=== PATIENT | male | born 1970 | race African-American/Black ===

== ENCOUNTER 2021-09-25 15:53 | Observation (INO) | payer SELFPAY ==
[~2021-09-25] VITALS: Ht 180.3 cm; Wt 118.0 kg
--- NOTE | 2021-09-25 16:05 | ED.ADGEN ---
Past Medical History Past Medical History: Hypertension General Adult HPI: HPI: Patient is a 50-year-old male who arrives who arrives via EMS after experiencing a syncopal episode while working. Patient reports he was moving a box when he was overcome with chest pain. Patient states in addition to having chest pain h e felt lightheaded and subsequently passed out which was witnessed by bystanders. Patient reports this is happened on multiple occasions however he is never sought medical attention. Patient denies any history of previous illness. He further denies any nausea, diaphoresis or shortness of air. Ad ditionally denies any head trauma from passing out or neurological changes from his baseline. He is awake, alert and nontoxic-appearing. Review of Systems: Review of Systems: Constitutional: Denies fever or chills. [] Eyes: Denies change in visual acuity. [] HENT: Denies nasal congestion or sore throat. [] Respiratory: Denies cough or shortness of breath. [] Cardiovascular: Reports chest and syncope. Denies edema. [] GI: Denies abdominal pain, nausea, vomiting, bloody stools or diarrhea. [] : Denies dysuria. [] Musculoskeletal: Denies back pain or joint pain. [] Integument: Denies rash. [] Neurologic: Denies headache, focal weakness or sensory changes. [] Endocrine: Denies polyuria or polydipsia. [] Lymphatic: Denies swollen glands. [] Psychiatric: Denies depression or anxiety. [] Current Medications: Current Medications Medications (Trade) Dose Ordered Sig/Paz Start Time Stop Time Status Last Admin Dose Admin Ondansetron HCl (Zofran) 4 mg PRN Q8HRS PRN 09/25/21 17:45 09/26/21 17:44 Sodium Chloride 1,000 ml @ 1,000 mls/hr 1X ONCE 09/25/21 17:30 09/25/21 18:29 Allergies: Allergies: Allergies Coded Allergies Type Severity Reaction Last Updated Verified No Known Drug Allergies 09/25/21 No Physical Exam: PE: Constitutional: Well developed, well nourished, no acute distress, non-toxic appearance. [] HENT: Normocephalic, atraumatic, bilateral external ears normal, oropharynx moist, no oral exudates, nose normal. [] Eyes: PERRLA, EOMI, conjunctiva normal, no discharge. [] Neck: Normal range of motion, no tenderness, supple, no stridor. [] Cardiovascular:Heart rate regular rhythm, no murmur [] Lungs & Thorax: Bilateral breath sounds clear to auscultation [] Abdomen: Bowel sounds normal, soft, no tenderness, no masses, no pulsatile masses. [] Skin: Warm, dry, no erythema, no rash. [] Back: No tenderness, no CVA tenderness. [] Extremities: No tenderness, no cyanosis, no clubbing, ROM intact, no edema. [] Neurologic: Alert and oriented X 3, normal motor function, normal sensory function, no focal deficits noted. [] Psychologic: Affect normal, judgement normal, mood normal. [] Current Patient Data: Labs: Laboratory Tests Test 09/25/21 16:40 White Blood Count 7.8 x10^3/uL (4.0-11.0) Red Blood Count 4.51 x10^6/uL (4.30-5.70) Hemoglobin 13.1 g/dL (13.0-17.5) Hematocrit 39.6 % (39.0-53.0) Mean Corpuscular Volume 88 fL (79-100) Mean Corpuscular Hemoglobin 29 pg (25-35) Mean Corpuscular Hemoglobin Concent 33 g/dL (31-37) Red Cell Distribution Width 14.0 % (11.5-14.5) Platelet Count 277 x10^3/uL (140-400) Neutrophils (%) (Auto) 74 % (31-73) H Lymphocytes (%) (Auto) 18 % (24-48) L Monocytes (%) (Auto) 6 % (0-9) Eosinophils (%) (Auto) 1 % (0-3) Basophils (%) (Auto) 1 % (0-3) Neutrophils # (Auto) 5.8 x10^3/uL (1.8-7.7) Lymphocytes # (Auto) 1.4 x10^3/uL (1.0-4.8) Monocytes # (Auto) 0.4 x10^3/uL (0.0-1.1) Eosinophils # (Auto) 0.1 x10^3/uL (0.0-0.7) Basophils # (Auto) 0.1 x10^3/uL (0.0-0.2) Sodium Level 147 mmol/L (136-145) H Potassium Level 4.0 mmol/L (3.5-5.1) Chloride Level 108 mmol/L (98-107) H Carbon Dioxide Level 27 mmol/L (21-32) Anion Gap 12 (6-14) Blood Urea Nitrogen 13 mg/dL (8-26) Creatinine 1.2 mg/dL (0.7-1.3) Estimated GFR (Cockcroft-Gault) 64.4 BUN/Creatinine Ratio 11 (6-20) Glucose Level 102 mg/dL (70-99) H Calcium Level 9.2 mg/dL (8.5-10.1) Total Bilirubin 0.4 mg/dL (0.2-1.0) Aspartate Amino Transferase (AST) 219 U/L (15-37) H Alanine Aminotransferase (ALT) 232 U/L (16-63) H Alkaline Phosphatase 122 U/L (46-116) H Troponin I High Sensitivity 59 ng/L (4-75) Total Protein 7.3 g/dL (6.4-8.2) Albumin 3.8 g/dL (3.4-5.0) Albumin/Globulin Ratio 1.1 (1.0-1.7) Laboratory Tests 09/25/21 16:40 Laboratory Tests 09/25/21 16:40 Vital Signs: Vital Signs Date Time Temp Pulse Resp B/P (MAP) Pulse Ox O2 Delivery O2 Flow Rate FiO2 09/25/21 16:05 98.2 79 18 134/88 (103) 97 Room Air 98.2 EKG: EKG: EKG was obtained at 1559 hrs. and reveals a normal sinus rhythm with a ventricular rate of 75 bpm. There is left axis deviation present. There are no acute ST/T wave changes to denote ischemia. There is no STEMI present. [] Heart Score: C/O Chest Pain: Yes HEART Score for Chest Pain: HEART Score for Chest Pain Response (Comments) Value History Slighlty/Non-Suspicious 0 ECG Normal 0 Age >45 - < 65 1 Risk Factors 1 or 2 Risk Factors 1 Troponin < Normal Limit 0 Total 2 Risk Factors: Risk Factors: DM, Current or recent (<one month) smoker, HTN, HLP, family history of CAD, obesity. Risk Scores: Score 0 - 3: 2.5% MACE over next 6 weeks - Discharge Home Score 4 - 6: 20.3% MACE over next 6 weeks - Admit for Clinical Observation Score 7 - 10: 72.7% MACE over next 6 weeks - Early Invasive Strategies Radiology/Procedures: Radiology/Procedures: [][facility] [address] [place] [address] IMAGING REPORT Signed PATIENT: ERIBERTO MENDOSA ACCOUNT: [id number] : 1970 LOCATION: ER AGE: 50 SEX: M EXAM STATUS: PRE ER ORD. PHYSICIAN: ALICIA SANDOVAL DO REASON: syncope PROCEDURE: PORTABLE CHEST 1V EXAM: XR CHEST 1V 09/25/2021 4:03 PM CLINICAL INDICATION: Syncope COMPARISON: None TECHNIQUE: AP upright view of the chest FINDINGS: The heart is normal in size. There are calcified left hilar lymph nodes. Lungs are well-expanded and clear. No consolidation, pleural effusion, or pneumothorax. Pulmonary vascularity is normal. The thoracic skeleton is intact. IMPRESSION: No acute cardiopulmonary abnormality. Electronically signed by: Barbara Hartmann MD (09/25/2021 4:13 PM) [id number] DICTATED and SIGNED BY: BARBARA HARTMANN MD DATE: 09/25/21 [id number] 0 Course & Med Decision Making: Course & Med Decision Making Pertinent Labs and Imaging studies reviewed. (See chart for details) [] Dragon Disclaimer: Dragon Disclaimer: This electronic medical record was generated, in whole or in part, using a voice recognition dictation system. Departure Departure Impression: Primary Impression: Syncope and collapse Additional Impressions: Chest pain Transaminitis Disposition: ADMITTED INPATIENT Admitting Physician: ROSALIO Condition: STABLE Problem Qualifiers ALICAI SANDOVAL DO Sep 25, 2021 16:05
--- NOTE | 2021-09-25 16:16 | RAD ---
EXAM: XR CHEST 1V 09/25/2021 4:03 PM CLINICAL INDICATION: Syncope COMPARISON: None TECHNIQUE: AP upright view of the chest FINDINGS: The heart is normal in size. There are calcified left hilar lymph nodes. Lungs are well-ex panded and clear. No consolidation, pleural effusion, or pneumothorax. Pulmonary vascularity is nor mal. The thoracic skeleton is intact. IMPRESSION: No acute cardiopulmonary abnormality. Electronically signed by: Barbara Hartmann MD (09/25/2021 4:13 PM) [id number]
[2021-09-25 16:47] LABS: BASO # 0.1 x10^3/uL (0.0-0.2); BASO % 1 % (0-3); EOS # 0.1 x10^3/uL (0.0-0.7); EOS % 1 % (0-3); HEMATOCRIT 39.6 % (39.0-53.0); HEMOGLOBIN 13.1 g/dL (13.0-17.5); LYMPH # 1.4 x10^3/uL (1.0-4.8); LYMPH % 18 % (24-48); MEAN CORPUSCULAR HEMOGLOBIN 29 pg (25-35); MEAN CORPUSCULAR HGB CONC 33 g/dL (31-37); MEAN CORPUSCULAR VOLUME 88 fL (79-100); MONO # 0.4 x10^3/uL (0.0-1.1); MONO % 6 % (0-9); NEUT # 5.8 x10^3/uL (1.8-7.7); NEUT % 74 % (31-73); PLATELET COUNT 277 x10^3/uL (140-400); RED BLOOD COUNT 4.51 x10^6/uL (4.30-5.70); WHITE BLOOD COUNT 7.8 x10^3/uL (4.0-11.0)
[2021-09-25 17:02] LABS: CALCIUM 9.2 mg/dL (8.5-10.1); CREATININE 1.2 mg/dL (0.7-1.3); GFR 64.4
[2021-09-25 17:08] LABS: ALBUMIN 3.8 g/dL (3.4-5.0); ALBUMIN/GLOBULIN RATIO 1.1 (1.0-1.7); TOTAL BILIRUBIN 0.4 mg/dL (0.2-1.0); TOTAL PROTEIN 7.3 g/dL (6.4-8.2)
[2021-09-25] MEDS ORDERED: IV NORMAL SALINE 1000ML BAG 1,000 ML IV ONE (17:30)
[2021-09-25] MEDS ORDERED: ONDANSETRON PF 4 MG/2 ML VIAL. IVP PRN (17:45)
--- NOTE | 2021-09-25 18:02 | EKG ---
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
[2021-09-25 21:10] VITALS: BP 185/94
--- NOTE | 2021-09-25 21:16 | PDOC1 ---
History and Physical Date of Admission Date of Admission DATE: 09/25/21 TIME: 21:15 History of Present Illness History of Present Illness Jose is a 50-year-old male admit for having severe chest pain and a syncopal episode while working. Patient reports he was moving a box when he was overcome with chest pain. He has had syncope a couple times before, never sought care, has happened when standing then walking Today, when he had chest pain he felt lightheaded and subsequently passed out which was witnessed by bystanders. His chest pain is nowimproved, maybe 2 Patient denies any history of previous illness. He further denies any nausea, diaphoresis or shortness of air Past Medical History Cardiovascular: No pertinent hx Pulmonary: No pertinent hx GI: No pertinent hx Heme/Onc: No pertinent hx ENT: No pertinent hx Renal/: No pertinent hx Endocrine: No pertinent hx Past Surgical History Past Surgical History: No pertinent history Family History Family History: No Significant Social History Smoke: No ALCOHOL: rare Drugs: None Current Problem List Problem List Problems Medical Problems: (1) Chest pain Status: Acute (2) Syncope and collapse Status: Acute (3) Transaminitis Status: Acute Current Medications Current Medications Current Medications Sodium Chloride 1,000 ml @ 1,000 mls/hr 1X ONCE IV Last administered on 09/25/21at 18:12; Start 09/25/21 at 17:30; Stop 09/25/21 at 18:29; Status DC Ondansetron HCl (Zofran) 4 mg PRN Q8HRS PRN IVP NAUSEA/VOMITING; Start 09/25/21 at 17:45; Stop 09/26/21 at 17:44 Allergies Allergies: Coded Allergies: No Known Drug Allergies (Unverified , 09/25/21) ROS General: No: Chills, Night Sweats, Fatigue, Malaise, Appetite, Other PSYCHOLOGICAL ROS: No: Anxiety, Behavioral Disorder, Concentration difficultie, Decreased libido, Depression, Disorientation, Hallucinations, Hostility, Irritablity, Memory difficulties, Mood Swings, Obsessive thoughts, Sleep disturbances, Other Eyes: No Blurry vision, No Decreased vision, No Double vision, No Dry eyes, No Excessive tearing, No Eye Pain, No Itchy Eyes, No Loss of vision, No Photophobia, No Scotomata, No Uses contacts, No Uses glasses, No Other HEENT: No: Heacaches, Visual Changes, Hearing change, Nasal congestion, Nasal discharge, Oral lesions, Sinus pain, Sore Throat, Epistaxis, Sneezing, Snoring, Tinnitus, Vertigo, Vocal changes, Other Respiratory: No: Cough, Hemoptysis, Orthopnea, Pleuritic Pain, Shortness of breath, SOB with excertion, Sputum Changes, Stridor, Tachypnea, Wheezing, Other Cardiovascular: yes Chest Pain, yes Other (syncope a couple times); No Palpitations, No Orthopnea, No Paroxysmal Noc. Dyspnea, No Edema, No Lt Headedness Gastrointestinal: No Nausea, No Vomiting, No Abdominal Pain, No Diarrhea, No Constipation, No Melena, No Hematochezia, No Other Genitourinary: No Dysuria, No Frequency, No Incontinence, No Hematuria, No Retention, No Discharge, No Urgency, No Pain, No Flank Pain, No Other, No , No , No , No , No , No , No Musculoskeletal: No Gait Disturbance, No Joint Pain, No Joint Stiffness, No Joint Swelling, No Muscle Pain, No Muscular Weakness, No Pain In:, No Swelling In:, No Other Neurological: No Behavorial Changes, No Bowel/Bladder ControlChng, No Confusion, No Dizziness, No Gait Disturbance, No Headaches, No Impaired Coord/balance, No Memory Loss, No Numbness/Tingling, No Seizures, No Speech Problems, No Tremors, No Visual Changes, No Weakness, No Other Skin: Yes Dry Skin; No Eczema, No Hair Changes, No Lumps, No Mole Changes, No Mottling, No Nail Changes, No Pruritus, No Rash, No Skin Lesion Changes, No Other, No Acne Physical Exam General: Alert, Oriented X3, Cooperative, No acute distress HEENT: Atraumatic, PERRLA, Mucous membr. moist/pink Lungs: Clear to auscultation Heart: S1S2, RRR, no gallops Abdomen: Normal bowel sounds (obese, ) Extremities: No clubbing, No edema, Normal pulses Skin: No rashes Neuro: Normal speech, Normal tone, Sensation intact Psych/Mental Status: Mood NL Vitals Vitals Vital Signs Date Time Temp Pulse Resp B/P (MAP) Pulse Ox O2 Delivery O2 Flow Rate FiO2 09/25/21 19:28 61 131/73 (92) 100 Room Air 09/25/21 16:05 98.2 18 98.2 Labs Labs Laboratory Tests Test 09/25/21 16:40 09/25/21 20:05 White Blood Count 7.8 x10^3/uL (4.0-11.0) Red Blood Count 4.51 x10^6/uL (4.30-5.70) Hemoglobin 13.1 g/dL (13.0-17.5) Hematocrit 39.6 % (39.0-53.0) Mean Corpuscular Volume 88 fL (79-100) Mean Corpuscular Hemoglobin 29 pg (25-35) Mean Corpuscular Hemoglobin Concent 33 g/dL (31-37) Red Cell Distribution Width 14.0 % (11.5-14.5) Platelet Count 277 x10^3/uL (140-400) Neutrophils (%) (Auto) 74 % (31-73) Lymphocytes (%) (Auto) 18 % (24-48) Monocytes (%) (Auto) 6 % (0-9) Eosinophils (%) (Auto) 1 % (0-3) Basophils (%) (Auto) 1 % (0-3) Neutrophils # (Auto) 5.8 x10^3/uL (1.8-7.7) Lymphocytes # (Auto) 1.4 x10^3/uL (1.0-4.8) Monocytes # (Auto) 0.4 x10^3/uL (0.0-1.1) Eosinophils # (Auto) 0.1 x10^3/uL (0.0-0.7) Basophils # (Auto) 0.1 x10^3/uL (0.0-0.2) Sodium Level 147 mmol/L (136-145) Potassium Level 4.0 mmol/L (3.5-5.1) Chloride Level 108 mmol/L (98-107) Carbon Dioxide Level 27 mmol/L (21-32) Anion Gap 12 (6-14) Blood Urea Nitrogen 13 mg/dL (8-26) Creatinine 1.2 mg/dL (0.7-1.3) Estimated GFR (Cockcroft-Gault) 64.4 BUN/Creatinine Ratio 11 (6-20) Glucose Level 102 mg/dL (70-99) Calcium Level 9.2 mg/dL (8.5-10.1) Total Bilirubin 0.4 mg/dL (0.2-1.0) Aspartate Amino Transf (AST/SGOT) 219 U/L (15-37) Alanine Aminotransferase (ALT/SGPT) 232 U/L (16-63) Alkaline Phosphatase 122 U/L (46-116) Troponin I High Sensitivity 59 ng/L (4-75) Total Protein 7.3 g/dL (6.4-8.2) Albumin 3.8 g/dL (3.4-5.0) Albumin/Globulin Ratio 1.1 (1.0-1.7) SARS-CoV-2 Antigen (Rapid) Negative (NEGATIVE) Laboratory Tests Test 09/25/21 16:40 09/25/21 20:05 White Blood Count 7.8 x10^3/uL (4.0-11.0) Red Blood Count 4.51 x10^6/uL (4.30-5.70) Hemoglobin 13.1 g/dL (13.0-17.5) Hematocrit 39.6 % (39.0-53.0) Mean Corpuscular Volume 88 fL (79-100) Mean Corpuscular Hemoglobin 29 pg (25-35) Mean Corpuscular Hemoglobin Concent 33 g/dL (31-37) Red Cell Distribution Width 14.0 % (11.5-14.5) Platelet Count 277 x10^3/uL (140-400) Neutrophils (%) (Auto) 74 % (31-73) Lymphocytes (%) (Auto) 18 % (24-48) Monocytes (%) (Auto) 6 % (0-9) Eosinophils (%) (Auto) 1 % (0-3) Basophils (%) (Auto) 1 % (0-3) Neutrophils # (Auto) 5.8 x10^3/uL (1.8-7.7) Lymphocytes # (Auto) 1.4 x10^3/uL (1.0-4.8) Monocytes # (Auto) 0.4 x10^3/uL (0.0-1.1) Eosinophils # (Auto) 0.1 x10^3/uL (0.0-0.7) Basophils # (Auto) 0.1 x10^3/uL (0.0-0.2) Sodium Level 147 mmol/L (136-145) Potassium Level 4.0 mmol/L (3.5-5.1) Chloride Level 108 mmol/L (98-107) Carbon Dioxide Level 27 mmol/L (21-32) Anion Gap 12 (6-14) Blood Urea Nitrogen 13 mg/dL (8-26) Creatinine 1.2 mg/dL (0.7-1.3) Estimated GFR (Cockcroft-Gault) 64.4 BUN/Creatinine Ratio 11 (6-20) Glucose Level 102 mg/dL (70-99) Calcium Level 9.2 mg/dL (8.5-10.1) Total Bilirubin 0.4 mg/dL (0.2-1.0) Aspartate Amino Transf (AST/SGOT) 219 U/L (15-37) Alanine Aminotransferase (ALT/SGPT) 232 U/L (16-63) Alkaline Phosphatase 122 U/L (46-116) Troponin I High Sensitivity 59 ng/L (4-75) Total Protein 7.3 g/dL (6.4-8.2) Albumin 3.8 g/dL (3.4-5.0) Albumin/Globulin Ratio 1.1 (1.0-1.7) SARS-CoV-2 Antigen (Rapid) Negative (NEGATIVE) VTE Prophylaxis Ordered VTE Prophylaxis Devices: No VTE Pharmacological Prophylaxi: Yes Assessment/Plan Assessment/Plan chest pain with exertion, angina, r/o ACS, consult CV syncope, tele obese, BMI 36 transaminitis, check hep panel, US Justifications for Admission Other Justification SRIRAM MOLINA MD Sep 25, 2021 21:16
[2021-09-25] MEDS ORDERED: ZOLPIDEM 5 MG TABLET. PO ONE (22:30)
[2021-09-25] MEDS ORDERED: ENOXAPARIN 40 MG/0.4 ML SYRINGE. SQ SCH (23:00)
[2021-09-26] VITALS (11 sets, daily range): BP systolic 138–178; BP diastolic 72–101
[2021-09-26 06:39] LABS: BASO % 1 % (0-3); EOS # 0.1 x10^3/uL (0.0-0.7); EOS % 2 % (0-3); HEMATOCRIT 37.1 % (39.0-53.0); HEMOGLOBIN 12.4 g/dL (13.0-17.5); LYMPH # 1.6 x10^3/uL (1.0-4.8); LYMPH % 27 % (24-48); MEAN CORPUSCULAR HEMOGLOBIN 30 pg (25-35); MEAN CORPUSCULAR HGB CONC 34 g/dL (31-37); MEAN CORPUSCULAR VOLUME 88 fL (79-100); MONO # 0.4 x10^3/uL (0.0-1.1); MONO % 7 % (0-9); NEUT # 3.8 x10^3/uL (1.8-7.7); NEUT % 63 % (31-73); PLATELET COUNT 257 x10^3/uL (140-400); RED BLOOD COUNT 4.22 x10^6/uL (4.30-5.70); RED CELL DISTRIBUTION WIDTH 13.8 % (11.5-14.5)
[2021-09-26 06:42] LABS: PROTHROMBIN TIME PATIENT 13.1 SEC (11.7-14.0)
[2021-09-26 07:01] LABS: ALBUMIN 3.4 g/dL (3.4-5.0); ALBUMIN/GLOBULIN RATIO 1.1 (1.0-1.7); CALCIUM 8.7 mg/dL (8.5-10.1); GFR 96.1; POTASSIUM 4.2 mmol/L (3.5-5.1); TOTAL BILIRUBIN 0.5 mg/dL (0.2-1.0); TOTAL PROTEIN 6.5 g/dL (6.4-8.2)
[2021-09-26 07:08] LABS: CHOLESTEROL/HDL RATIO 4.6
--- NOTE | 2021-09-26 08:23 | RAD ---
Exam: Right Upper Quadrant Ultrasound 09/25/2021 6:36 AM Indication: Abdominal pain Technique: Multiple realtime grayscale sonographic images were obtained over the abdomen. Static imag es were submitted for interpretation. Comparisons: None Findings: Pancreas is poorly visualized. Visualized aorta and IVC are unremarkable. Liver is mildly hyperechoic . Mild hepatic steatosis not excluded. No focal hepatic lesions are identified. The liver is top norm al in regards to size measuring 17.7 cm longitudinally. The gallbladder demonstrates no evidence of w all thickening, stones, or sludge. Portal venous flow appears to the normal direction. Right kidney i s normal in appearance measuring 11 cm in length. IMPRESSION: 1. Possible mild hepatic steatosis 2. Otherwise unremarkable sonographic appearance of the right upper quadrant. Electronically signed by: Wilver Mitchell MD (09/26/2021 8:21 AM) [id number]
--- NOTE | 2021-09-26 09:10 | PDOC2 ---
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 Park SOURCE Source: Chart review, Patient HISTORY OF PRESENT ILLNESS HISTORY OF PRESENT ILLNESS This is a 50 yo male who presented secondary to syncopal episode. Patient reports he was at work carrying a heavy box. He bent over the lay the box down. When he stood up, had sudden onset of dizziness, lightheaded. He lead against the truck and was able to open the door. He then subsequently passed out. Fortunately, he landed in the vehicle and did not fall to the ground. EMS was called. Patient then reports experiencing pressure in his left chest. No palpitations, diaphoresis, or nausea/vomiting. He reports chest resolved upon EMS arrival without intervention. Patient reports multiple episode of passing out previously. Denies any injury with this. 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 [place] lightheaded, dizzy while ambulating and subsequently passed o ut. Has been evaluated in the ED once prior for syncopal episode, but was discharge home. Cannot recall suspected etiology of this. PAST MEDICAL HISTORY Cardiovascular: HTN PAST SURGICAL HISTORY Past Surgical History: Hernia Repair, Other (knee surgery ) FAMILY HISTORY Family History: Diabetes, Hypertension SOCIAL HISTORY Smoke: <1 pack per day ALCOHOL: none (h/o heavy use, but quit) Drugs: Marijuana Lives: with Family CURRENT MEDICATIONS CURRENT MEDICATIONS Current Medications Medications (Trade) Dose Ordered Sig/Paz Route PRN Reason Start Time Stop Time Status Last Admin Dose Admin Sodium Chloride 1,000 ml @ 1,000 mls/hr 1X ONCE IV 09/25/21 17:30 09/25/21 18:29 DC 09/25/21 18:12 Zolpidem Tartrate (Ambien) 5 mg 1X ONCE PO 09/25/21 22:30 09/25/21 22:31 DC 09/26/21 00:26 Enoxaparin Sodium (Lovenox 40mg Syringe) 40 mg Q24H SQ 09/25/21 23:00 09/26/21 00:27 ALLERGIES ALLERGIES: Coded Allergies: No Known Drug Allergies (Unverified , 09/25/21) ROS Review of System 14 point ROS conducted with pertinent positives noted above in HPI PHYSICAL EXAM General: Alert, Oriented X3, Cooperative, No acute distress HEENT: Atraumatic Lungs: Clear to auscultation Heart: Regular rate Abdomen: Soft, No tenderness Extremities: No edema, Normal pulses Skin: No significant lesion Neuro: Normal speech, Sensation intact Psych/Mental Status: Mental status NL, Mood NL MUSCULOSKELETAL: Osteoarthritic changes both hands VITALS/I&O VITALS/I&O: Vital Signs Date Time Temp Pulse Resp B/P (MAP) Pulse Ox O2 Delivery O2 Flow Rate FiO2 09/26/21 03:00 50 22 146/75 (98) 99 Room Air 09/25/21 21:10 98.4 98.4 I & O 09/25/21 09/25/21 09/26/21 15:00 23:00 07:00 Intake Total 240 ml Output Total 300 ml Balance -60 ml LABS Lab: Laboratory Tests Test 09/25/21 16:40 09/25/21 20:05 09/26/21 04:35 White Blood Count 7.8 x10^3/uL (4.0-11.0) 6.0 x10^3/uL (4.0-11.0) Red Blood Count 4.51 x10^6/uL (4.30-5.70) 4.22 x10^6/uL (4.30-5.70) L Hemoglobin 13.1 g/dL (13.0-17.5) 12.4 g/dL (13.0-17.5) L Hematocrit 39.6 % (39.0-53.0) 37.1 % (39.0-53.0) L Mean Corpuscular Volume 88 fL (79-100) 88 fL (79-100) Mean Corpuscular Hemoglobin 29 pg (25-35) 30 pg (25-35) Mean Corpuscular Hemoglobin Concent 33 g/dL (31-37) 34 g/dL (31-37) Red Cell Distribution Width 14.0 % (11.5-14.5) 13.8 % (11.5-14.5) Platelet Count 277 x10^3/uL (140-400) 257 x10^3/uL (140-400) Neutrophils (%) (Auto) 74 % (31-73) H 63 % (31-73) Lymphocytes (%) (Auto) 18 % (24-48) L 27 % (24-48) Monocytes (%) (Auto) 6 % (0-9) 7 % (0-9) Eosinophils (%) (Auto) 1 % (0-3) 2 % (0-3) Basophils (%) (Auto) 1 % (0-3) 1 % (0-3) Neutrophils # (Auto) 5.8 x10^3/uL (1.8-7.7) 3.8 x10^3/uL (1.8-7.7) Lymphocytes # (Auto) 1.4 x10^3/uL (1.0-4.8) 1.6 x10^3/uL (1.0-4.8) Monocytes # (Auto) 0.4 x10^3/uL (0.0-1.1) 0.4 x10^3/uL (0.0-1.1) Eosinophils # (Auto) 0.1 x10^3/uL (0.0-0.7) 0.1 x10^3/uL (0.0-0.7) Basophils # (Auto) 0.1 x10^3/uL (0.0-0.2) 0.0 x10^3/uL (0.0-0.2) Sodium Level 147 mmol/L (136-145) H 144 mmol/L (136-145) Potassium Level 4.0 mmol/L (3.5-5.1) 4.2 mmol/L (3.5-5.1) Chloride Level 108 mmol/L (98-107) H 109 mmol/L (98-107) H Carbon Dioxide Level 27 mmol/L (21-32) 25 mmol/L (21-32) Anion Gap 12 (6-14) 10 (6-14) Blood Urea Nitrogen 13 mg/dL (8-26) 10 mg/dL (8-26) Creatinine 1.2 mg/dL (0.7-1.3) 1.0 mg/dL (0.7-1.3) Estimated GFR (Cockcroft-Gault) 64.4 96.1 BUN/Creatinine Ratio 11 (6-20) 10 (6-20) Glucose Level 102 mg/dL (70-99) H 91 mg/dL (70-99) Calcium Level 9.2 mg/dL (8.5-10.1) 8.7 mg/dL (8.5-10.1) Total Bilirubin 0.4 mg/dL (0.2-1.0) 0.5 mg/dL (0.2-1.0) Aspartate Amino Transferase (AST) 219 U/L (15-37) H 68 U/L (15-37) H Alanine Aminotransferase (ALT) 232 U/L (16-63) H 158 U/L (16-63) H Alkaline Phosphatase 122 U/L (46-116) H 103 U/L (46-116) Troponin I High Sensitivity 59 ng/L (4-75) Total Protein 7.3 g/dL (6.4-8.2) 6.5 g/dL (6.4-8.2) Albumin 3.8 g/dL (3.4-5.0) 3.4 g/dL (3.4-5.0) Albumin/Globulin Ratio 1.1 (1.0-1.7) 1.1 (1.0-1.7) SARS-CoV-2 (PCR) Not detected (NOT DETECTD) SARS-CoV-2 Antigen (Rapid) Negative (NEGATIVE) Prothrombin Time 13.1 SEC (11.7-14.0) Prothrombin Time INR 1.0 (0.8-1.1) Triglycerides Level 100 mg/dL (0-150) Cholesterol Level 179 mg/dL (0-200) LDL Cholesterol, Calculated 120 mg/dL (0-100) H VLDL Cholesterol, Calculated 20 mg/dL (0-40) Non-HDL Cholesterol Calculated 140 mg/dL (0-129) H HDL Cholesterol 39 mg/dL (40-60) L Cholesterol/HDL Ratio 4.6 Laboratory Tests 09/25/21 16:40 09/26/21 04:35 Laboratory Tests 09/25/21 16:40 09/26/21 04:35 ASSESSMENT/PLAN ASSESSMENT/PLAN 1. Syncope, recurrent; ? vasovagal 2. Chest pain, atypical. Initial trop WNL. 3. Hypertension; controlled 4. Dyslipidemia; LDL 120 5. Elevated LFTs 6. H/o heavy alcohol use; in remission 7. Tobaccoism; discussed/encouraged cessation Recommendations Trend trop Echocardiogram to asses LV systolic function UDS Check orthos Monitor tele Consider outpatient event monitor Further pending above RACHELL CLARK MD 09/26/21 1036: CARDIAC CONSULT ASSESSMENT/PLAN ASSESSMENT/PLAN Patient seen and examined. Agree with above nurse practitioner note. 50-year-old man with multiple recurrent near-syncopal episodes over the last 6 years. Initial EKG is unremarkable but he does have an elevated troponin. Blood pressure was stable when he had arrived. No obvious other source for his elevated troponin. NSTEMI and we will plan for cardiac catheterization. PRESLEY MALONE APRN Sep 26, 2021 09:10 RACHELL CLARK MD Sep 26, 2021 10:36
--- NOTE | 2021-09-26 09:54 | NUR ---
SS following for discharge planning. SS reviewed pt chart and discussed with pt RN. Pt is from home and is currently on room air. COVID19 negative. Cardiology following. Self pay. Med Assist following. SS will continue to follow for discharge planning.
[2021-09-26] MEDS ORDERED: ASPIRIN ENTERIC COATED 81 MG TABLET.DR. PO SCH (10:00)
[2021-09-26] MEDS ORDERED: HEPARIN for ARTERIAL LINE 1,500 ML ONE (10:44)
[2021-09-26] MEDS ORDERED: IODIXANOL 320 MG/ML 100 ML VIAL. ONE (10:44)
[2021-09-26] MEDS ORDERED: LIDOCAINE 1% PF 2 ML VIAL. ONE (10:44)
--- NOTE | 2021-09-26 11:22 | PDOC ---
[employer] PROGRESS NOTE Date of Service DOS: DATE: 09/26/21 TIME: 11:20 Chief Complaint Chief Complaint Chest pain Syncope Elevated troponin Elevated transaminases Noncompliance Hypertension History of Present Illness History of Present Illness 09/26/2019 Patient seen and examined in the ICU His troponin has bumped up to greater than 300 now Cardiology is taking him to the [facility] today I also consulted GI for the elevated transaminases Discussed with RN Discussed with case management Chart reviewed Vitals/I&O Vitals/I&O: Vital Signs Date Time Temp Pulse Resp B/P (MAP) Pulse Ox O2 Delivery O2 Flow Rate FiO2 09/26/21 03:00 50 22 146/75 (98) 99 Room Air 09/25/21 21:10 98.4 98.4 I & O 09/25/21 09/25/21 09/26/21 15:00 23:00 07:00 Intake Total 240 ml Output Total 300 ml Balance -60 ml Physical Exam General: Alert, Oriented X3, Cooperative, No acute distress Heart: Regular rate Abdomen: Soft, No tenderness Extremities: No edema, Normal pulses Skin: No significant lesion Labs Labs: Laboratory Tests Test 09/25/21 16:40 09/25/21 20:05 09/26/21 04:35 White Blood Count 7.8 x10^3/uL (4.0-11.0) 6.0 x10^3/uL (4.0-11.0) Red Blood Count 4.51 x10^6/uL (4.30-5.70) 4.22 x10^6/uL (4.30-5.70) Hemoglobin 13.1 g/dL (13.0-17.5) 12.4 g/dL (13.0-17.5) Hematocrit 39.6 % (39.0-53.0) 37.1 % (39.0-53.0) Mean Corpuscular Volume 88 fL (79-100) 88 fL (79-100) Mean Corpuscular Hemoglobin 29 pg (25-35) 30 pg (25-35) Mean Corpuscular Hemoglobin Concent 33 g/dL (31-37) 34 g/dL (31-37) Red Cell Distribution Width 14.0 % (11.5-14.5) 13.8 % (11.5-14.5) Platelet Count 277 x10^3/uL (140-400) 257 x10^3/uL (140-400) Neutrophils (%) (Auto) 74 % (31-73) 63 % (31-73) Lymphocytes (%) (Auto) 18 % (24-48) 27 % (24-48) Monocytes (%) (Auto) 6 % (0-9) 7 % (0-9) Eosinophils (%) (Auto) 1 % (0-3) 2 % (0-3) Basophils (%) (Auto) 1 % (0-3) 1 % (0-3) Neutrophils # (Auto) 5.8 x10^3/uL (1.8-7.7) 3.8 x10^3/uL (1.8-7.7) Lymphocytes # (Auto) 1.4 x10^3/uL (1.0-4.8) 1.6 x10^3/uL (1.0-4.8) Monocytes # (Auto) 0.4 x10^3/uL (0.0-1.1) 0.4 x10^3/uL (0.0-1.1) Eosinophils # (Auto) 0.1 x10^3/uL (0.0-0.7) 0.1 x10^3/uL (0.0-0.7) Basophils # (Auto) 0.1 x10^3/uL (0.0-0.2) 0.0 x10^3/uL (0.0-0.2) Sodium Level 147 mmol/L (136-145) 144 mmol/L (136-145) Potassium Level 4.0 mmol/L (3.5-5.1) 4.2 mmol/L (3.5-5.1) Chloride Level 108 mmol/L (98-107) 109 mmol/L (98-107) Carbon Dioxide Level 27 mmol/L (21-32) 25 mmol/L (21-32) Anion Gap 12 (6-14) 10 (6-14) Blood Urea Nitrogen 13 mg/dL (8-26) 10 mg/dL (8-26) Creatinine 1.2 mg/dL (0.7-1.3) 1.0 mg/dL (0.7-1.3) Estimated GFR (Cockcroft-Gault) 64.4 96.1 BUN/Creatinine Ratio 11 (6-20) 10 (6-20) Glucose Level 102 mg/dL (70-99) 91 mg/dL (70-99) Calcium Level 9.2 mg/dL (8.5-10.1) 8.7 mg/dL (8.5-10.1) Total Bilirubin 0.4 mg/dL (0.2-1.0) 0.5 mg/dL (0.2-1.0) Aspartate Amino Transf (AST/SGOT) 219 U/L (15-37) 68 U/L (15-37) Alanine Aminotransferase (ALT/SGPT) 232 U/L (16-63) 158 U/L (16-63) Alkaline Phosphatase 122 U/L (46-116) 103 U/L (46-116) Troponin I High Sensitivity 59 ng/L (4-75) 328 ng/L (4-75) Total Protein 7.3 g/dL (6.4-8.2) 6.5 g/dL (6.4-8.2) Albumin 3.8 g/dL (3.4-5.0) 3.4 g/dL (3.4-5.0) Albumin/Globulin Ratio 1.1 (1.0-1.7) 1.1 (1.0-1.7) Coronavirus (COVID-19)(PCR) Not detected (NOT DETECTD) SARS-CoV-2 Antigen (Rapid) Negative (NEGATIVE) Prothrombin Time 13.1 SEC (11.7-14.0) Prothromb Time International Ratio 1.0 (0.8-1.1) Triglycerides Level 100 mg/dL (0-150) Cholesterol Level 179 mg/dL (0-200) LDL Cholesterol, Calculated 120 mg/dL (0-100) VLDL Cholesterol, Calculated 20 mg/dL (0-40) Non-HDL Cholesterol Calculated 140 mg/dL (0-129) HDL Cholesterol 39 mg/dL (40-60) Cholesterol/HDL Ratio 4.6 Thyroid Stimulating Hormone (TSH) 1.213 uIU/mL (0.358-3.74) Hepatitis A IgM Antibody Nonreactive (Nonreactive) Hepatitis B Surface Antigen Nonreactive (Nonreactive) Hepatitis B Core IgM Antibody Nonreactive (Nonreactive) Hepatitis C IgG Antibody Nonreactive (Nonreactive) Assessment and Plan Assessmemt and Plan Problems Medical Problems: (1) Chest pain Status: Acute (2) Syncope and collapse Status: Acute (3) Transaminitis Status: Acute Chest pain suspect possible acute OR Syncope Elevated troponin Elevated transaminases Noncompliance Hypertension Plan He is going to cardiac cath today For now continue ICU monitoring Serial enzymes Serial EKGs I have consulted GI regarding the elevated transaminases Home meds DVT prophylaxis Full code Appreciate subspecialist input Comment Review of Relevant I have reviewed the following items melissa (where applicable) has been applied. Medications: Current Medications Medications (Trade) Dose Ordered Sig/Paz Route PRN Reason Start Time Stop Time Status Last Admin Dose Admin Sodium Chloride 1,000 ml @ 1,000 mls/hr 1X ONCE IV 09/25/21 17:30 09/25/21 18:29 DC 09/25/21 18:12 Zolpidem Tartrate (Ambien) 5 mg 1X ONCE PO 09/25/21 22:30 09/25/21 22:31 DC 09/26/21 00:26 Enoxaparin Sodium (Lovenox 40mg Syringe) 40 mg Q24H SQ 09/25/21 23:00 09/26/21 00:27 Justifications for Admission Other Justification MARGARITA SHEA III DO Sep 26, 2021 11:22
--- NOTE | 2021-09-26 12:23 | CARD ---
MR#: [id number] Date of Study: 09/26/2021 Ordering Physician: PRESLEY MALONE, Referring Physician: PRESLEY MALONE, Jasmyn: José Antonio Goyal [facility] APPROVED REPORT EXAM: Two-dimensional and M-mode echocardiogram with Doppler and color Doppler. Other Information Quality : FairHR: 65bpm Rhythm : NSR INDICATION Syncope RISK FACTORS Hypertension Obesity 2D DIMENSIONS Left Atrium(2D)4.4 (1.6-4.0cm)IVSd1.5 (0.7-1.1cm) Aortic Root(2D)3.7 (2.0-3.7cm)LVDd5.1 (3.9-5.9cm) LVOT Diameter2.4 (1.8-2.4cm)PWd1.5 (0.7-1.1cm) LA Iisahr54 (18-58mL)LVDs3.3 (2.5-4.0cm) FS (%) 34.4 %SV77.6 ml LVEF(%)63.2 (>50%) Aortic Valve AoV Peak Cornelio.190.5cm/sAoV VTI35.8cm AO Peak GR.14.5mmHgLVOT Peak Cornelio.147.5cm/s AO Mean GR.9mmHgAVA (VMAX)3.48cm2 Mitral Valve MV E Atcjwutf80.9cm/sMV E Peak Gr.4mmHg MV DECEL YNQH250dfVK A Loqbnycs46.8cm/s MV E Mean Gr.1mmHgE/A Ratio1.1 Pulmonary Valve PV Peak Lrvccryq590.7cm/s Tricuspid Valve TR P. Kafhuvxs550uy/sTR Peak Gr.15mmHg Pulmonary Vein S1 Jzfmlaly50.5cm/sD2 Zmadktmu15.8cm/s LEFT VENTRICLE The left ventricle is normal size. There is moderate concentric left ventricular hypertrophy. The lef t ventricular systolic function is normal. The ejection fraction estimated at 60 to 65%. There is nor mal LV segmental wall motion. No left ventricle thrombus noted on this study. There is no ventricular septal defect visualized. There is no left ventricular aneurysm. There is no mass noted in the left ventricle. RIGHT VENTRICLE The right ventricle is normal size. There is normal right ventricular wall thickness. The right ventr icular systolic function is normal. ATRIA The left atrium size is normal. The right atrium size is normal. The interatrial septum is intact wit h no evidence for an atrial septal defect or patent foramen ovale as noted on 2-D or Doppler imaging. AORTIC VALVE The aortic valve is normal in structure and function. The aortic valve is trileaflet. Doppler and Col or Flow revealed no significant aortic regurgitation. There is no significant aortic valvular stenosi s. There is no aortic valvular vegetation. MITRAL VALVE The mitral valve is normal in structure and function. There is no evidence of mitral valve prolapse. There is no mitral valve stenosis. Doppler and Color Flow revealed no mitral valve regurgitation note d. TRICUSPID VALVE The tricuspid valve is normal in structure and function. Doppler and Color Flow revealed trace tricus pid regurgitation. There is no tricuspid valve prolapse or vegetation. There is no tricuspid valve st enosis. PULMONIC VALVE The pulmonary valve is normal in structure and function. Doppler and Color Flow revealed no pulmonic valvular regurgitation. There is no pulmonic valvular stenosis. GREAT VESSELS The aortic root is normal in size. The ascending aorta is normal in size. The pulmonary artery is nor mal. The IVC is normal in size and collapses >50% with inspiration. PERICARDIAL EFFUSION There is no pleural effusion. There is no evidence of significant pericardial effusion. Critical Notification Critical Value: No <Conclusion> The left ventricular systolic function is normal. The ejection fraction estimated at 60 to 65%. There is normal LV segmental wall motion. Trace tricuspid regurgitation. There is no evidence of significant pericardial effusion. Signed by : Todd Farrell, Electronically Approved : 09/26/2021 12:22:41
--- NOTE | 2021-09-26 12:44 | PDOC2 ---
GI CONSULT Date of Service: DATE: 09/26/21 TIME: 12:32 Reason For Consult: transaminase-itis HPI: HPI: 50 y/o male admitted after syncope. Elevated troponin, cardiac cath planned for today. We're asked to see for elevated AST and ALT which have improved. He's not forthcoming with information. Occasional "bad taste in mouth" - untreated. No dysphagia, n/v, abd pain, diarrhea, constipation, hematochezia, melena, change in appetite, or weight loss. No previous EGD or colonoscopy. No GB, liver, pancreas, or PUD history. Shows me pictures of pills bottles - amitriptyline (doesn't know why he takes) and carvedilol. D/w nurse - h/o alcohol use. He admits to drinking some - wants really quantify - last drink "weeks" ago. Denies drug use. Other notes mention h/o syncope (no previous eval) and chest pain. PMH: PMH: HTN right IHR, left knee arthroscopy FH: Family History: Other ("my dad probably had something") Social History: Smoke: <1 pack per day ALCOHOL: none Drugs: Marijuana (mentioned in chart, he denied) ROS: GEN: Denies fevers, chills, sweats HEENT: Denies blurred vision, sore throat CV: Denies chest pain RESP: Denies shortness of air, cough GI: Per HPI : Denies hematuria, dysuria ENDO: Denies weight changes NEURO: Denies confusion, dizziness MSK: Denies weakness, joint pain/swelling SKIN: Denies jaundice, pruritus Vitals: Vitals: Vital Signs Date Time Temp Pulse Resp B/P (MAP) Pulse Ox O2 Delivery O2 Flow Rate FiO2 09/26/21 08:00 98.1 60 22 163/96 (118) 99 Room Air 98.1 Labs: Labs: Laboratory Tests Test 09/25/21 16:40 09/25/21 20:05 09/26/21 04:35 White Blood Count 7.8 x10^3/uL (4.0-11.0) 6.0 x10^3/uL (4.0-11.0) Red Blood Count 4.51 x10^6/uL (4.30-5.70) 4.22 x10^6/uL (4.30-5.70) Hemoglobin 13.1 g/dL (13.0-17.5) 12.4 g/dL (13.0-17.5) Hematocrit 39.6 % (39.0-53.0) 37.1 % (39.0-53.0) Mean Corpuscular Volume 88 fL (79-100) 88 fL (79-100) Mean Corpuscular Hemoglobin 29 pg (25-35) 30 pg (25-35) Mean Corpuscular Hemoglobin Concent 33 g/dL (31-37) 34 g/dL (31-37) Red Cell Distribution Width 14.0 % (11.5-14.5) 13.8 % (11.5-14.5) Platelet Count 277 x10^3/uL (140-400) 257 x10^3/uL (140-400) Neutrophils (%) (Auto) 74 % (31-73) 63 % (31-73) Lymphocytes (%) (Auto) 18 % (24-48) 27 % (24-48) Monocytes (%) (Auto) 6 % (0-9) 7 % (0-9) Eosinophils (%) (Auto) 1 % (0-3) 2 % (0-3) Basophils (%) (Auto) 1 % (0-3) 1 % (0-3) Neutrophils # (Auto) 5.8 x10^3/uL (1.8-7.7) 3.8 x10^3/uL (1.8-7.7) Lymphocytes # (Auto) 1.4 x10^3/uL (1.0-4.8) 1.6 x10^3/uL (1.0-4.8) Monocytes # (Auto) 0.4 x10^3/uL (0.0-1.1) 0.4 x10^3/uL (0.0-1.1) Eosinophils # (Auto) 0.1 x10^3/uL (0.0-0.7) 0.1 x10^3/uL (0.0-0.7) Basophils # (Auto) 0.1 x10^3/uL (0.0-0.2) 0.0 x10^3/uL (0.0-0.2) Sodium Level 147 mmol/L (136-145) 144 mmol/L (136-145) Potassium Level 4.0 mmol/L (3.5-5.1) 4.2 mmol/L (3.5-5.1) Chloride Level 108 mmol/L (98-107) 109 mmol/L (98-107) Carbon Dioxide Level 27 mmol/L (21-32) 25 mmol/L (21-32) Anion Gap 12 (6-14) 10 (6-14) Blood Urea Nitrogen 13 mg/dL (8-26) 10 mg/dL (8-26) Creatinine 1.2 mg/dL (0.7-1.3) 1.0 mg/dL (0.7-1.3) Estimated GFR (Cockcroft-Gault) 64.4 96.1 BUN/Creatinine Ratio 11 (6-20) 10 (6-20) Glucose Level 102 mg/dL (70-99) 91 mg/dL (70-99) Calcium Level 9.2 mg/dL (8.5-10.1) 8.7 mg/dL (8.5-10.1) Total Bilirubin 0.4 mg/dL (0.2-1.0) 0.5 mg/dL (0.2-1.0) Aspartate Amino Transf (AST/SGOT) 219 U/L (15-37) 68 U/L (15-37) Alanine Aminotransferase (ALT/SGPT) 232 U/L (16-63) 158 U/L (16-63) Alkaline Phosphatase 122 U/L (46-116) 103 U/L (46-116) Troponin I High Sensitivity 59 ng/L (4-75) 328 ng/L (4-75) Total Protein 7.3 g/dL (6.4-8.2) 6.5 g/dL (6.4-8.2) Albumin 3.8 g/dL (3.4-5.0) 3.4 g/dL (3.4-5.0) Albumin/Globulin Ratio 1.1 (1.0-1.7) 1.1 (1.0-1.7) Coronavirus (COVID-19)(PCR) Not detected (NOT DETECTD) SARS-CoV-2 Antigen (Rapid) Negative (NEGATIVE) Prothrombin Time 13.1 SEC (11.7-14.0) Prothromb Time International Ratio 1.0 (0.8-1.1) Triglycerides Level 100 mg/dL (0-150) Cholesterol Level 179 mg/dL (0-200) LDL Cholesterol, Calculated 120 mg/dL (0-100) VLDL Cholesterol, Calculated 20 mg/dL (0-40) Non-HDL Cholesterol Calculated 140 mg/dL (0-129) HDL Cholesterol 39 mg/dL (40-60) Cholesterol/HDL Ratio 4.6 Thyroid Stimulating Hormone (TSH) 1.213 uIU/mL (0.358-3.74) Hepatitis A IgM Antibody Nonreactive (Nonreactive) Hepatitis B Surface Antigen Nonreactive (Nonreactive) Hepatitis B Core IgM Antibody Nonreactive (Nonreactive) Hepatitis C IgG Antibody Nonreactive (Nonreactive) Allergies: Coded Allergies: No Known Drug Allergies (Unverified , 09/25/21) Medications: Current Medications Medications (Trade) Dose Ordered Sig/Paz Route PRN Reason Start Time Stop Time Status Last Admin Dose Admin Sodium Chloride 1,000 ml @ 1,000 mls/hr 1X ONCE IV 09/25/21 17:30 09/25/21 18:29 DC 09/25/21 18:12 Zolpidem Tartrate (Ambien) 5 mg 1X ONCE PO 09/25/21 22:30 09/25/21 22:31 DC 09/26/21 00:26 Enoxaparin Sodium (Lovenox 40mg Syringe) 40 mg Q24H SQ 09/25/21 23:00 09/26/21 00:27 Aspirin (Ecotrin) 81 mg [id number] PO 09/26/21 10:00 09/26/21 12:29 Imaging: Imaging: CXR IMPRESSION: No acute cardiopulmonary abnormality. Abd US IMPRESSION: 1. Possible mild hepatic steatosis 2. Otherwise unremarkable sonographic appearance of the right upper quadrant. Echo <Conclusion> The left ventricular systolic function is normal. The ejection fraction estimated at 60 to 65%. There is normal LV segmental wall motion. Trace tricuspid regurgitation. There is no evidence of significant pericardial effusion. PE: GEN: NAD HEENT: Atraumatic, PERRL LUNGS: CTAB HEART: RRR ABD: NABS, S/ND/NT EXTREMITY: No edema SKIN: tattoos NEURO/PSYCH: A & O 3, playing game on phone throughout our conversation A/P: A/P: Recurrent syncope, chest pain Elevated troponin Elevated AST and ALT - improved, viral Hep panel negative, possible hepatic steatosis on US, seems at least some alcohol history H/o dysgeusia CRC screen - none COVID negative -- Await cardiac cath, follow LFTs (?related to syncope), add acid-wood type finisher. Screening colonoscopy as outpt. FAVIAN KRISHNA Sep 26, 2021 12:44
[2021-09-26] MEDS ORDERED: VERAPAMIL 5 MG/2 ML VIAL. ONE (12:56)
[2021-09-26] MEDS ORDERED: MIDAZOLAM HCL/PF 2 MG/2 ML VIAL. ONE ×2 (12:56→13:29)
[2021-09-26] MEDS ORDERED: fentaNYL PF VIAL 100 MCG/2 ML VIAL ONE ×2 (12:56→13:28)
[2021-09-26] MEDS ORDERED: NITROGLYCERIN 200 MCG/2 ML SYRINGE FOR CATH/VASC LAB. ONE (12:56)
[2021-09-26] MEDS ORDERED: HEPARIN for IV BOLUS 10,000 UNIT/10 ML VIAL. ONE (12:56)
[2021-09-26 13:17] LABS: BARBITURATES NEG (NEG); BENZODIAZEPINES NEG (NEG); CANNABINOIDS POS (NEG); COCAINE NEG (NEG); METHADONE NEG (NEG); OPIATES NEG (NEG); PHENCYCLIDINE NEG (NEG)
[2021-09-26 13:18] LABS: AMPHETAMINE/METHAMPHETAMINE NEG (NEG)
[2021-09-26] MEDS ORDERED: HEPARIN for IV BOLUS 10,000 UNIT/10 ML VIAL. IART ONE (13:45)
[2021-09-26] MEDS ORDERED: LIDOCAINE 1% PF 2 ML VIAL. INJ ONE (13:45)
[2021-09-26] MEDS ORDERED: NITROGLYCERIN 200 MCG/2 ML SYRINGE FOR CATH/VASC LAB. IART ONE (13:45)
[2021-09-26] MEDS ORDERED: MIDAZOLAM HCL/PF 2 MG/2 ML VIAL. IV ONE (13:45)
[2021-09-26] MEDS ORDERED: IODIXANOL 320 MG/ML 100 ML VIAL. IART ONE (13:45)
[2021-09-26] MEDS ORDERED: VERAPAMIL 5 MG/2 ML VIAL. IART ONE (13:45)
[2021-09-26] MEDS ORDERED: fentaNYL PF VIAL 100 MCG/2 ML VIAL IV ONE (13:45)
--- NOTE | 2021-09-26 13:45 | NUR ---
RECEIVED REPORT FROM [facility]. PT AWAKE AND ORIENTED, TR BAND IN PLACE WITH 12 ML OF AIR, NO BLEEDING C/D/I. PT EDUCATED ON TR BAND -INSTRUCTED HIM TO NOT USE RIGHT ARM TO PUSH OFF THE BED TO STAND AND TO USE CALL LIGHT FOR NURSE TO ASSIST TO BATHROOM, ETC.
[2021-09-26] MEDS ORDERED: PANTOPRAZOLE 40 MG TABLET.DR. PO SCH (14:00)
--- NOTE | 2021-09-26 15:53 | CARD ---
MR#: [id number] Date of Study: 09/26/2021 Ordering Physician: RACHELL ALY, Referring Physician: RACHELL ALY, Tech: RT Norman(R)() APPROVED REPORT Technologist: Tawny Esparza RT(R)() Nurse: Palak Avery RN Procedure(s) performed: MODERATE SEDATION TIME: 25 MIN FLUORO TIME: 2.0 MIN DOSE: 54 GYCM2 CONTRAST: 83CC VISI LHC, Coronary angiography INDICATION The indication(s) include : non-STEMI . CSHA Clinical Frailty Scale CSHA Clinical Frailty Scale: Well Heart Failure Heart Failure: No PROCEDURE NARRATIVE Clinical information: 50-year-old male presented to the hospital in the setting of syncope, chest pain and elevated troponi n. Informed consent: Written informed consent was obtained from the patient after adequate discussion of the risks and fredi efits of the procedure. Procedure details: ACCESS: The right wrist was prepped and draped in usual sterile fashion. Under 1% lidocaine local anesthesia a 6 [place] Terumo sheath was placed in the right radial artery via the Seldinger technique. DIAGNOSTIC ANGIOGRAPHY: Right and left coronary arteries were engaged with a 6 [place] TIG catheter. Diagnostic angiography i n multiple views were obtained. Next, a 6 [place] pigtail catheter was placed in the left ventricle a nd a LVEDP was measured. A pullback was performed after left ventriculography. All catheters were e xchanged over J-tip guidewire. FINDINGS: ======= Aorta: 110/80 LVEDP: 15 mmHg No LV to aortic pullback gradient Left ventriculogram: Ejection fraction 55% Normal wall motion without any evidence of aortic or mitral insufficiency. Coronary angiography: LM: Large caliber vessel with normal angiographic appearance LAD: Large caliber vessel with normal angiographic appearance D1: Moderate to large caliber vessel with normal angiographic appearance LCX: Moderate to large caliber non-dominant vessel with normal angiographic appearance OM1: Moderate caliber vessel with normal angiographic appearance RCA: Large caliber dominant vessel with mild luminal irregularities RPDA: Moderate caliber vessel with mild luminal irregularities. CLOSURE: At case completion the right radial sheath was removed and a Terumo radial band was applied with 11 m L of air. Hemostasis was achieved. COMPLICATIONS: No acute complications noted Conclusion 1. Normal left ventricular filling pressures. 2. Normal LV systolic function, EF 55% 3. No significant coronary artery disease Recommendations Aggressive Medical Therapy Signed by : Rachell Aly, Electronically Approved : 09/26/2021 15:53:07
--- NOTE | 2021-09-26 18:20 | DS ---
DATE OF DISCHARGE: 09/26/2021 ADMITTING DIAGNOSIS: Chest pain. DISCHARGE DIAGNOSES: 1. Resolving chest pain with elevated troponin and elevated transaminase. 2. Cardiac catheterization that was clean. HOSPITAL COURSE: The patient is a pleasant 50-year-old male who presented with chest pain and syncope. He also had elevated transaminases. His troponin was slightly high and the second draw was high at above 300. At that point, Cardiology decided to go and taken him to the laborer construction or leak gang. Today, he went to the laborer construction or leak gang and apparently was clean. The nurses notified immediately. They would like to go home. We plan to discharge. DISPOSITION: Home. ACTIVITY: As tolerated. DIET: Low sodium. MEDICATIONS: Please see the MRAD. TOTAL TIME: [address]: Kellee TID: [id number]
== END 2021-09-26 18:15 | disposition home or self-care (01) ==
LOC: ER 15:53 → ED HOLD 17:30 → 1 WEST ICU 18:22
PROVIDERS: ADMIT Internal Medicine; ATTEND Internal Medicine
DX: R07.89 Other chest pain (principal); Z20.822 Contact with and (suspected) exposure to COVID-19; R55 Syncope and collapse; R74.01 Elevation of levels of liver transaminase levels; I10 Essential (primary) hypertension; E66.9 Obesity, unspecified; E78.5 Hyperlipidemia, unspecified; I20.9 Angina pectoris, unspecified; I21.4 Non-ST elevation (NSTEMI) myocardial infarction; R77.8 Other specified abnormalities of plasma proteins; F17.200 Nicotine dependence, unspecified, uncomplicated; Z68.36 Body mass index [BMI] 36.0-36.9, adult; Z91.19 Patient's noncompliance with other medical treatment and regimen; Z79.899 Other long term (current) drug therapy; Z98.890 Other specified postprocedural states; X50.0XXA Overexertion from strenuous movement or load, initial encounter; Y93.89 Activity, other specified; Y92.89 Other specified places as the place of occurrence of the external cause; Y99.8 Other external cause status
CPT/HCPCS: 36415; 71045; 76705; 80053; 80061; 80307; 84443; 84484; 85025; 85610; 86705; 86709; 86803; 87340; 87426; 93005; 93306; 93458; 96360; 96372; 99152; 99153; 99285; C1769; C1894; G0378; J1644; J1650; J2250; J3010; J3490; J7030; Q9967; U0003; G0379; C8929